=== PATIENT | female | born 1970 | race African-American/Black ===

== ENCOUNTER 2024-10-06 11:44 | Inpatient (IN) | payer MEDICAID ==
[~2024-10-06] VITALS: Ht 170.2 cm; Wt 100.7 kg
[2024-10-06 12:24] LABS: BASOPHILS % 0.3 % (0.0-2.0); EOSINOPHILS % 0.8 % (0.0-5.0); HEMATOCRIT. 37.3 % (36.0-48.0); HEMOGLOBIN. 12.2 g/dL (12.0-16.0); LYMPHOCYTES % 26.5 % (20.0-50.0); MEAN CORPUSCULAR HEMOGLOBIN 28.8 pg (28.0-32.0); MEAN CORPUSCULAR HGB CONC 32.6 g/dL (31.0-37.0); MEAN CORPUSCULAR VOLUME 88.2 fL (81.0-99.0); MEAN PLATELET VOLUME 6.9 fl (7.4-10.4); MONOCYTES % 4.8 % (2.0-8.0); NEUTROPHILS % 67.6 % (40.0-76.0); PLATELET 356 x1000/uL (130-400); RED BLOOD CELL COUNT 4.23 mill/uL (4.2-5.4); RED CELL DISTRIBUTION WIDTH 15.9 % (11.6-14.6); WHITE BLOOD COUNT 8.4 x1000/uL (4.5-11.0)
[2024-10-06 12:34] LABS: PROTHROMBIN TIME 11.1 sec (9.6-11.0)
[2024-10-06 12:36] LABS: CHLORIDE 101 mEq/L (98-107); SODIUM 137 mEq/L (136-145)
[2024-10-06 12:37] LABS: CALCIUM 8.4 mg/dL (8.7-10.4); CARBON DIOXIDE 25 mEq/L (21-32)
[2024-10-06 12:42] LABS: ETHANOL BLOOD < 10 mg/dL (<10); GLUCOSE 138 mg/dL (70-105); TROPONIN I HIGH SENSITIVITY 21 ng/L (3.0-34); UREA NITROGEN BLOOD 17 mg/dL (9-23)
[2024-10-06] MEDS: HYDRALAZINE 20MG/ML VIAL IV ONE (12:52)
[2024-10-06] MEDS ORDERED: ACETAMINOPHEN 325MG TABLET PO PRN ×2 (14:45)
[2024-10-06] MEDS ORDERED: IPRATROPIUM/ALBUTEROL 0.5-3(2.5)MG/3ML NEB HHN PRN (14:45)
[2024-10-06] MEDS ORDERED: MAGNESIUM/ALUMINUM HYDROXIDE/SIMETHICONE 30ML UDC PO PRN (14:45)
[2024-10-06] MEDS ORDERED: ONDANSETRON HCL 4MG/2ML INJ IV PRN (14:45)
[2024-10-06] MEDS ORDERED: DOCUSATE SODIUM 100MG CAPSULE PO PRN (14:45)
[2024-10-06] MEDS ORDERED: GUAIFENESIN 200MG/10ML SUGAR FREE UDC PO PRN (14:45)
[2024-10-06 15:22] LABS: PHOSPHORUS 1.7 mg/dL (2.5-4.9)
[2024-10-06] MEDS ORDERED: KCL 20MEQ/100ML PREMIX 100 ML IV NR (16:00)
[2024-10-06] MEDS: IOHEXOL-350 100 ML BOTTLE ONE (16:48)
[2024-10-06] MEDS: POTASSIUM PHOSPHATE 20 MMOL in DEXT 5% WATER 243.3333 ML IV NR (17:00)
[2024-10-06 17:06] LABS: CARBON DIOXIDE 29 mEq/L (21-32); CHLORIDE 101 mEq/L (98-107); POTASSIUM 3.3 mEq/L (3.5-5.1); SODIUM 141 mEq/L (136-145)
[2024-10-06 17:07] LABS: CALCIUM 9.7 mg/dL (8.7-10.4)
[2024-10-06 17:11] LABS: CREATININE 1.9 mg/dL (0.6-1.0)
[2024-10-06 17:12] LABS: GLUCOSE 128 mg/dL (70-105); UREA NITROGEN BLOOD 16 mg/dL (9-23)
[2024-10-06 17:13] LABS: ALANINE AMINOTRANSFERASE 17 IU/L (10-49); ASPARTATE AMINOTRANSFERASE 23 IU/L (<34)
[2024-10-06 17:14] LABS: ALBUMIN 3.8 g/dL (3.2-4.8); BILIRUBIN TOTAL 0.4 mg/dL (0.1-1.0); PROTEIN TOTAL 8.3 g/dL (6.0-8.3)
[2024-10-06] MEDS: ASPIRIN 81MG TABLET PO SCH (17:25)
[2024-10-06] MEDS: CLONIDINE 0.1MG TABLET PO NR (17:28)
[2024-10-06] MEDS: NIFEDIPINE XL 60MG TAB PO SCH (17:53)
[2024-10-06] MEDS: PANTOPRAZOLE SODIUM 40 MG/VIAL IV SCH (18:48)
[2024-10-06 20:40] VITALS: BP 164/102; PULSE 96; RESP 20; TEMP 36.4; O2SAT 97
[2024-10-06 21:06] VITALS: BP 164/102; PULSE 96; RESP 20; TEMP 36.4
[2024-10-06] MEDS: POTASSIUM CHLORIDE 20MEQ/PACKET PO NR (21:30)
[2024-10-06] MEDS: ATORVASTATIN CALCIUM 40MG TABLET PO SCH (21:31)
[2024-10-06] MEDS: HYDRALAZINE HCL 50MG TABLET PO SCH (21:31)
[2024-10-06 23:26] LABS: CLARITY URINE CLEAR (CLEAR); COLOR URINE YELLOW (YELLOW); GLUCOSE URINE NEGATIVE (NEGATIVE); KETONES URINE NEGATIVE (NEGATIVE); LEUKOCYTE ESTERASE URINE NEGATIVE (NEGATIVE); NITRITE URINE NEGATIVE (NEGATIVE); OCCULT BLOOD URINE NEGATIVE (NEGATIVE); PH URINE 5.5 (4.5-8.0); PROTEIN URINE 3+ (NEGATIVE); SPECIFIC GRAVITY URINE 1.028 (1.005-1.030)
[2024-10-06 23:43] LABS: SQUAMOUS EPITHELIAL CELL URINE FEW /lpf (RARE/1+)
[2024-10-06 23:44] LABS: BACTERIA URINE NONE SEEN; RBC URINE 0-2 /hpf (0-2); WBC URINE 0-2 /hpf (0-2)
[2024-10-06 23:47] LABS: *AMPHETAMINES SCREEN URINE NEGATIVE (NEGATIVE); *BARBITURATES SCREEN URINE NEGATIVE (NEGATIVE); *BENZODIAZEPINES SCREEN URINE NEGATIVE (NEGATIVE); *COCAINE SCREEN URINE NEGATIVE (NEGATIVE); METHADONE URINE SCREEN NEGATIVE (NEGATIVE); OPIATES URINE SCREEN NEGATIVE (NEGATIVE)
[2024-10-06 23:48] LABS: CANNABINOID URINE SCREEN NEGATIVE (NEGATIVE); ECSTASY MDMA SCREEN URINE NEGATIVE (NEGATIVE); PHENCYCLIDINE URINE SCREEN NEGATIVE (NEGATIVE)
[2024-10-07] MEDS ORDERED: ASPI-1497 PO (00:15)
[2024-10-07] MEDS ORDERED: BENA40TA91 PO ×2 (00:15)
[2024-10-07] MEDS ORDERED: CLON1PAT10 TD (00:15)
[2024-10-07] MEDS ORDERED: NIFE20CA8 PO (00:15)
[2024-10-07] MEDS ORDERED: FURO-151 PO (00:15)
[2024-10-07] MEDS ORDERED: ATOR-2 PO (00:15)
[2024-10-07] MEDS ORDERED: SPIR25TA6 PO (00:15)
[2024-10-07] MEDS ORDERED: HYDR50TA40 PO (00:15)
[2024-10-07 02:57] LABS: CREATINE KINASE MB FRACTION 4.7 ng/mL (0.5-3.6)
[2024-10-07 04:00] VITALS: BP 153/101; PULSE 101; RESP 18; TEMP 36.6; O2SAT 98
[2024-10-07 06:38] LABS: CREATINE KINASE MB FRACTION 3.8 ng/mL (0.5-3.6)
[2024-10-07 06:39] LABS: CALCIUM 9.4 mg/dL (8.7-10.4); POTASSIUM 3.7 mEq/L (3.5-5.1)
[2024-10-07 06:43] LABS: T4 FREE 1.17 ng/dL (0.89-1.76)
[2024-10-07 06:44] LABS: CREATININE 2.2 mg/dL (0.6-1.0); THYROID STIMULATING HORMONE 0.68 uIU/mL (0.55-4.78)
[2024-10-07 07:29] LABS: BASOPHILS % 0.3 % (0.0-2.0); EOSINOPHILS % 0.3 % (0.0-5.0); HEMATOCRIT. 41.1 % (36.0-48.0); HEMOGLOBIN. 13.7 g/dL (12.0-16.0); LYMPHOCYTES % 27.7 % (20.0-50.0); MEAN CORPUSCULAR HEMOGLOBIN 29.4 pg (28.0-32.0); MEAN CORPUSCULAR HGB CONC 33.2 g/dL (31.0-37.0); MEAN CORPUSCULAR VOLUME 88.4 fL (81.0-99.0); MEAN PLATELET VOLUME 7.6 fl (7.4-10.4); MONOCYTES % 5.1 % (2.0-8.0); NEUTROPHILS % 66.6 % (40.0-76.0); PLATELET 354 x1000/uL (130-400); RED BLOOD CELL COUNT 4.65 mill/uL (4.2-5.4); RED CELL DISTRIBUTION WIDTH 16.6 % (11.6-14.6); WHITE BLOOD COUNT 5.4 x1000/uL (4.5-11.0)
[2024-10-07 08:00] VITALS: BP 145/96; PULSE 98; RESP 18; TEMP 36.1; O2SAT 98
[2024-10-07] MEDS: SODIUM CHLORIDE 0.9% 1,000 ML IV SCH (08:30)
[2024-10-07 12:00] VITALS: BP 134/89; PULSE 112; RESP 17; TEMP 35.9; O2SAT 97
[2024-10-07 16:00] VITALS: BP_SYST 123; BP_SYST 145; BP_DIAS 67; BP_DIAS 86; PULSE 105; RESP 17; TEMP 36.2; O2SAT 98
[2024-10-07 21:56] VITALS: BP 120/74; PULSE 105; RESP 19; TEMP 36.5; O2SAT 97
[2024-10-08] VITALS: BP 133/88; PULSE 109; RESP 20; TEMP 36.4; O2SAT 98
[2024-10-08 04:00] VITALS: BP 131/88; PULSE 110; RESP 20; TEMP 36.4; O2SAT 98
[2024-10-08 07:02] LABS: POTASSIUM 3.1 mEq/L (3.5-5.1)
[2024-10-08 07:04] LABS: CALCIUM 9.8 mg/dL (8.7-10.4)
[2024-10-08 07:08] LABS: HEMATOCRIT 44.4 % (36.0-48.0); HEMOGLOBIN 14.5 g/dL (12.0-16.0); MEAN CORPUSCULAR HGB CONC 32.7 g/dL (31.0-37.0); MEAN CORPUSCULAR VOLUME 88.7 fL (81.0-99.0); PLATELET 418 x1000/uL (130-400); RED CELL DISTRIBUTION WIDTH 16.9 % (11.6-14.6); WHITE BLOOD COUNT 5.8 x1000/uL (4.5-11.0)
[2024-10-08 07:14] LABS: CREATININE 2.9 mg/dL (0.6-1.0)
[2024-10-08 08:00] VITALS: BP 134/54; PULSE 102; RESP 18; TEMP 36.3; O2SAT 100
[2024-10-08] MEDS: POTASSIUM CHLORIDE 20MEQ/PACKET PO NR (09:46)
[2024-10-08] MEDS: FAMOTIDINE 20MG/2ML VIAL IV SCH (09:47)
[2024-10-08] MEDS: SODIUM CHLORIDE 0.45% 1,000 ML IV ONE (10:25)
[2024-10-08 12:00] VITALS: BP 111/88; PULSE 96; RESP 18; TEMP 36.7; O2SAT 95
[2024-10-08 16:00] VITALS: BP 141/88; PULSE 98; RESP 20; TEMP 36.6; O2SAT 98
[2024-10-08 20:00] VITALS: BP 138/81; PULSE 87; RESP 20; TEMP 36.2; O2SAT 96; O2SAT 99
[2024-10-08 22:07] LABS: CREATINE KINASE 1242 IU/L (34-145)
[2024-10-09 08:00] VITALS: BP 122/69; PULSE 87; RESP 18; TEMP 36.2; O2SAT 97
[2024-10-09 08:26] LABS: POTASSIUM 4.1 mEq/L (3.5-5.1)
[2024-10-09 08:28] LABS: CALCIUM 8.7 mg/dL (8.7-10.4)
[2024-10-09 08:32] LABS: CREATININE 2.4 mg/dL (0.6-1.0)
[2024-10-09] MEDS: CLOPIDOGREL 75MG TABLET PO SCH (10:36)
[2024-10-09 10:40] LABS: HEMATOCRIT 40.5 % (36.0-48.0); HEMOGLOBIN 13.3 g/dL (12.0-16.0); MEAN CORPUSCULAR HEMOGLOBIN 28.7 pg (28.0-32.0); MEAN CORPUSCULAR HGB CONC 32.8 g/dL (31.0-37.0); MEAN CORPUSCULAR VOLUME 87.6 fL (81.0-99.0); RED BLOOD CELL COUNT 4.62 mill/uL (4.2-5.4); RED CELL DISTRIBUTION WIDTH 16.9 % (11.6-14.6)
[2024-10-09 10:46] LABS: PLATELET 379 x1000/uL (130-400)
[2024-10-09 12:00] VITALS: BP 144/93; PULSE 106; RESP 18; TEMP 36.3; O2SAT 97
[2024-10-09 16:00] VITALS: BP 138/94; PULSE 104; RESP 18; TEMP 36.3; O2SAT 97
[2024-10-09] MEDS ORDERED: OLANZAPINE 10 MG/VIAL IM PRN (18:45)
[2024-10-09 20:00] VITALS: BP 188/118; PULSE 114; RESP 19; TEMP 36.2; O2SAT 97
[2024-10-09] MEDS: QUETIAPINE FUMARATE 50MG TABLET PO SCH (21:00)
[2024-10-09] MEDS: HYDRALAZINE 20MG/ML VIAL IV PRN (21:30)
[2024-10-09] MEDS: LORAZEPAM 2MG/ML UD SYRINGE IM PRN (21:31)
[2024-10-10] VITALS: BP 170/99; PULSE 128; RESP 22; TEMP 36.2; O2SAT 97
[2024-10-10 04:00] VITALS: BP 130/96; PULSE 106; RESP 20; TEMP 36; O2SAT 97
[2024-10-10 06:51] LABS: HEMATOCRIT 36.7 % (36.0-48.0); HEMOGLOBIN 11.9 g/dL (12.0-16.0); MEAN CORPUSCULAR HEMOGLOBIN 28.7 pg (28.0-32.0); MEAN CORPUSCULAR HGB CONC 32.3 g/dL (31.0-37.0); MEAN CORPUSCULAR VOLUME 88.9 fL (81.0-99.0); PLATELET 325 x1000/uL (130-400); RED BLOOD CELL COUNT 4.13 mill/uL (4.2-5.4); RED CELL DISTRIBUTION WIDTH 16.9 % (11.6-14.6); WHITE BLOOD COUNT 4.1 x1000/uL (4.5-11.0)
[2024-10-10 06:55] LABS: POTASSIUM 3.7 mEq/L (3.5-5.1)
[2024-10-10 06:56] LABS: CALCIUM 8.4 mg/dL (8.7-10.4)
[2024-10-10 08:00] VITALS: BP 159/109; PULSE 88; RESP 19; TEMP 36.8; O2SAT 98
[2024-10-10 12:00] VITALS: BP 130/98; PULSE 85; RESP 19; TEMP 36.8; O2SAT 98
[2024-10-10 16:00] VITALS: BP 129/89; PULSE 80; RESP 19; TEMP 36.7; O2SAT 98
[2024-10-10 20:00] VITALS: BP 118/84; PULSE 113; RESP 19; TEMP 36.7; O2SAT 100
[2024-10-11] VITALS: BP 151/97; PULSE 113; RESP 19; TEMP 36.7; O2SAT 98
[2024-10-11] MEDS: LORAZEPAM 2MG/ML UD SYRINGE IM PRN (00:07)
[2024-10-11 04:00] VITALS: BP 147/107; PULSE 102; RESP 20; TEMP 36.7; O2SAT 99
[2024-10-11 08:00] VITALS: BP 143/113; PULSE 103; RESP 15; TEMP 36.2; O2SAT 96
[2024-10-11 12:00] VITALS: BP 148/101; PULSE 107; RESP 19; TEMP 36.2; O2SAT 98
[2024-10-11] MEDS ORDERED: FURO-151 PO (14:22)
[2024-10-11] MEDS ORDERED: QUET50TA PO (14:22)
[2024-10-11] MEDS ORDERED: CLOP-31 PO (14:22)
[2024-10-11] MEDS: CLONIDINE 0.1MG TABLET PO PRN (15:39)
[2024-10-11 16:00] VITALS: BP 159/104; PULSE 111; RESP 15; TEMP 36.7; O2SAT 96
[2024-10-11 17:19] VITALS: BP 133/99; PULSE 97; TEMP 97.7; O2SAT 96
[2024-10-11 17:27] LABS: POTASSIUM 3.5 mEq/L (3.5-5.1)
[2024-10-11 17:28] LABS: CALCIUM 8.8 mg/dL (8.7-10.4)
[2024-10-11 17:33] LABS: CREATININE 1.8 mg/dL (0.6-1.0)
== END 2024-10-11 18:51 | disposition home or self-care (01) | DRG 52 ==
LOC: ER 11:44 → EDBEDREQ 13:43 → EDBEDREQTM 13:43 → 6WST 21:35
PROVIDERS: ADMIT Internal Medicine; ATTEND Internal Medicine
DX: G92.8 Other toxic encephalopathy (principal); N17.0 Acute kidney failure with tubular necrosis; I21.A1 Myocardial infarction type 2; J69.0 Pneumonitis due to inhalation of food and vomit; E83.39 Other disorders of phosphorus metabolism; M62.82 Rhabdomyolysis; I16.1 Hypertensive emergency; E87.6 Hypokalemia; N18.9 Chronic kidney disease, unspecified; I12.9 Hypertensive chronic kidney disease with stage 1 through stage 4 chronic kidney disease, or unspecified chronic kidney disease; E66.01 Morbid (severe) obesity due to excess calories; I65.1 Occlusion and stenosis of basilar artery; E78.5 Hyperlipidemia, unspecified; F39 Unspecified mood [affective] disorder; Z86.73 Personal history of transient ischemic attack (TIA), and cerebral infarction without residual deficits; Z79.82 Long term (current) use of aspirin; Z79.899 Other long term (current) drug therapy; Z68.34 Body mass index [BMI] 34.0-34.9, adult
CPT/HCPCS: 36415; 70496; 70498; 70551; 71045; 80048; 80053; 80061; 80305; 80320; 81003; 82088; 82550; 82553; 83036; 83735; 83880; 84100; 84439; 84443; 84484; 85025; 85027; 93005; 93970; 97162; 97166; 99285; A4606; G0378; J0360; J2060; J2470; J3490; J7030; J7060; Q9967; G0480